=== PATIENT | female | born 1960 ===

== ENCOUNTER 2021-11-18 17:53 | Emergency (ER) | payer OTHER, SELFPAY ==
[2021-11-18 18:06] VITALS: BP 166/86; PULSE 85; RESP 18; TEMP 36.9; O2SAT 96; BMI 28.3
--- NOTE | 2021-11-18 18:29 | CRLHL7_ITS ---
For Patients: As a result of the Cures Act, medical imaging exams and procedure reports are released immediately into your electronic medical record. You may view this report before your referring provider. If you have questions, please contact your health care provider. Indication: Trauma Technique: Three views of the left shoulder were acquired Comparison: None Findings: The acromioclavicular and glenohumeral joints appear to be intact. There is no definite acute fracture, dislocation or destructive process. There are degenerative changes. A sclerotic focus is noted between the coracoid. This could be a sclerotic lesion in the glenoid neck or it could be ossific debris within the subcoracoid recess related to osteoarthritis. I do not believe this is acute posttraumatic in nature. Impression: No visible acute fracture, dislocation or destructive process. Sclerotic focus in the glenoid neck probably a bone island or related to ossific debris within the subcoracoid recess as is seen in degenerative change. Dictated by Robert Orozco MD @ 11/18/2021 7:24:55 PM (Electronically Signed)
--- NOTE | 2021-11-18 18:29 | CRLHL7_ITS ---
For Patients: As a result of the Cures Act, medical imaging exams and procedure reports are released immediately into your electronic medical record. You may view this report before your referring provider. If you have questions, please contact your health care provider. Indication: Trauma Technique: Three views were acquired Comparison: None Findings: Decreased bone mineral density. Mild degenerative changes. No visible acute fracture, dislocation or destructive process. Impression: No visible acute posttraumatic change by plain film Dictated by Robert Orozco MD @ 11/18/2021 7:26:06 PM (Electronically Signed)
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
[2021-11-18 20:10] VITALS: BP 166/86; PULSE 85; RESP 18; TEMP 36.9
== END 2021-11-18 20:11 | disposition home or self-care (01) ==
LOC: ED 19:28
PROVIDERS: Emergency Provider Family Medicine
DX: S16.1XXA Strain of muscle, fascia and tendon at neck level, initial encounter (principal); G89.11 Acute pain due to trauma; M25.512 Pain in left shoulder
CPT/HCPCS: 72040; 73030; 99283; 99284